=== PATIENT | male | born 1950 | race Caucasian/White ===

== ENCOUNTER 2017-11-11 10:19 | Outpatient (CLI) | payer MEDICARE ==
[~2017-11-11] VITALS: Ht 170.2 cm; Wt 88.6 kg
--- NOTE | ~2017-11-11 | HEMODYNAMI ---
PATIENT:EVA WHALEY MEDICAL RECORD: [id number] : 52 [id number] ADMISSION DATE: 11/11/17 Generatedon:11/12/201713:01 Patient name: EVA WHALEY Patient #: [id number] SSN: : 1 05/05/1949 Date of study: 11/12/2017 Page: Of Hemodynamic Procedure Report Patient Data Patient Demographics Procedure consent was obtained First Name: EVA Gender: Male Last Name: JUDD : 1950 Patient #: [id number] Age: 67 year(s) Race: Unknown Additional ID: [id number] Contact details [address]: [address] [place] [address] State: [place] City: [place] Zip code: [address] Admission Admission Data Admission Date: 11/11/2017 Admission Time: 10:19 Admit Source: Other Room #: D.2111 Lab Results Lab Result Date: 11/11/2017 Lab Result Time: 10:55 Biochemistry Name Units Result Min Max BUN mg/dl 13 --(--*-)-- 7 18 Creatinine mg/dl 0.9 --(-*--)-- 0.6 1.3 CBC Name Units Result Min Max Hematocrit % 45.9 --(-*--)-- 42 54 Hemoglobin g/dl 15.7 --(--*-)-- 13.5 17.5 Procedure Procedure Types Cath Procedure PCI Procedure Coronary Stent Coronary Stent Initial Procedure Description Procedure Date Procedure Date: 11/12/2017 Procedure Start Time: 12:49 Procedure End Time: 12:59 Procedure Staff Name Function Derrick Duncan MD Performing Physician Unique Tee RT Monitor Siva Castle RN Nurse Alan Chopra RT Scrub Procedure Data Cath Procedure Fluoroscopy Diagnostic fluoroscopy Total fluoroscopy Time: 1.5 time: 1.5 min min Diagnostic fluoroscopy Total fluoroscopy dose: 244 dose: 244 mGy mGy Contrast Material Contrast Material Type Amount (ml) Isovue 300 50 Entry Location Entry Primary Successful Side Size Upsize Upsize Entry Closure Succes sful Closure Location (Fr) 1 (Fr) 2 (Fr) Remarks Device Remarks Femoral Left 6 Fr Exoseal artery Short Estimated blood loss: 5 ml Procedure Complications No complications Procedure Medications Medication Administration Route Dosage Oxygen etCO2 Nasal cannula 2 l/min Heparin Flush Bag added to field 2 bags (1000units/500ml NS) 0.9% NaCl I.V. 100 ml/hr Fentanyl I.V. 50 mcg Versed I.V. 1 mg Versed I.V. 1 mg Fentanyl I.V. 50 mcg Heparin Bolus I.V. 4000 units Hemodynamics Rest HGB: 15.7 (g/dl) Heart Rate: 48 (bpm) Snapshots Pre Cath Intra NCS Post Cath Vital Signs Time Heart Resp SPO2 etCO2 NIBP (mmHg) Rhythm Pain Sedation Rate (ipm) (%) (mmHg) Status Level (bpm) 12:41:26 49 17 98 0 126/68(108) NSR 0 (11) 10(A) , No pain 12:46:10 47 17 100 38.3 120/67(95) NSR 0 (11) 10(A) , No pain 12:50:51 49 11 99 31.5 129/71(100) NSR 0 (11) 9(A) , No pain 12:55:31 49 11 95 39.1 126/62(100) NSR 0 (11) 9(A) , No pain Medications Time Medication Route Dose Verified Delivered Reason Notes Effectiveness by by 12:47:12 Oxygen etCO2 2 Derrick Paniagua Per physician Nasal l/min Dakota Castle RN cannula 12:47:20 Heparin Flush added 2 Derrick Paniagua used for Bag to bags Dakota Castle provisioning specialist (1000units/500ml field NS) 12:47:29 0.9% NaCl I.V. 100 Derrick Siva Per physician ml/hr Dakota Castle RN 12:47:41 Fentanyl I.V. 50 Derrick Paniagua for sedation mcg Dakota Castle RN 12:47:47 Versed I.V. 1 mg Derrick Paniagua for sedation Dakota Caslte RN 12:50:17 Versed I.V. 1 mg Derrick Paniagua for sedation Dakota Castle RN 12:50:24 Fentanyl I.V. 50 Derrick Paniagua for sedation mcg Dakota Castle RN 12:52:51 Heparin Bolus I.V. 4000 Derrick Paniagua for units Dakota Castle RN anticoagulation Procedure Log Time Note 12:24:12 Time tracking: Regular hours (M-F 7:00 - 5:00) 12:24:16 Plan of Care:Hemodynamics will remain stable., Cardiac rhythm will remain stable., Comfort level will be maintained., Respiratory function will remain adequate., Patient/ family verbilizes understanding of procedure., Procedure tolerated without complication., Recovers from procedure without complications.. 12:24:19 Siva Castle RN sent for patient. Start room use. 12:28:23 Use device set CATH PACK 12:28:25 Use device set TAUTH PCI 12:28:26 ACIST Syringe (29135) opened to sterile field. 12:28:27 ACIST Hand Control (23079) opened to sterile field. 12:28:27 ACIST Manifold (57971) opened to sterile field. 12:28:27 Medline Cath Pack ([id number]) opened to sterile field. 12:28:28 Bag Decanter (2002S) opened to sterile field. 12:28:28 DIAGNOSTIC WIRE .035 260cm J wire (656207) opened to sterile field. 12:28:29 INFLATOR Merit BasixCompak (CC7775) opened to sterile field. 12:28:33 CHOICE PT Extra Support 182cm wire ([id number]) opened to sterile field. 12:28:36 SHEATH Prelude 6Fr 0.035 (ELL-3Z-28-035) opened to sterile field. 12:35:30 Patient received from PCU to CCL 1 Alert and oriented. Tansferred to table in Supine position. 12:35:31 Warm blankets applied, and kishan hugger turned on for patient comfort. 12:35:32 Correct patient and procedure confirmed by team. 12:35:33 Signed procedure consent form obtained from patient. 12:35:34 ECG and BP/O2 sat monitors applied to patient. 12:35:35 Full Disclosure recording started 12:40:33 Vital chart was started 12:43:44 Rhythm: sinus rhythm 12:43:51 Pre-procedure instructions explained to patient. 12:43:52 Pre-op teaching completed and patient verbalized understanding. 12:43:54 Family in patients room. 12:43:55 Patient NPO since Midnight. 12:44:00 Is the patient allergic to Iodine/contrast media? No. 12:44:01 Is patient on blood thinner?Yes 12:44:04 ACC The patient was administered the following blood thiners within the last 24 hours: ACCPlavix 12:44:06 Patient diabetic? No. 12:44:24 Previous problem with sedation/anesthesia? No ? 12:44:25 Snore? Yes 12:44:26 Sleep apnea? Yes 12:44:27 Deviated septum? No 12:44:28 Opens mouth fully? Yes 12:44:28 Sticks out tongue? Yes 12:44:30 Airway obstruction? No ? 12:44:32 Dentures? No ? 12:44:39 Pre procedure: left dorsailis pedis pulse 2+ Normal; easily identifiable; not easily obliterated 12:44:42 Patient pain scale 0/10 ?. 12:44:48 IV patent on arrival in right wrist with 0.9% NaCl at [facility]. 12:44:51 Lab results completed and on chart. 12:45:01 Left groin area was prepped with chlora-prep and draped in sterile fashion 12:45:03 Alarms reviewed by R. N. 12:45:03 Sharps counted by scrub and verified by R.N. 12:45:11 GUIDE 6FR XBLAD 3.5 catheter ([id number]) opened to sterile field. 12:46:25 Final Timeout: patient, procedure, and site verified with staff and physician. All members of the team are in agreement. 12:46:27 Left groin site verified by team. 12:46:29 Physical assessment completed. ASA score P 2 - A patient with mild systemic disease as per Derrick Duncan MD. 12:46:31 Sedation plan: IV Moderate Sedation Medication:Versed, Fentanyl 12:46:45 Baseline sample Acquired. 12:47:12 Oxygen 2 l/min etCO2 Nasal cannula was administered by Siva Castle RN; Per physician; 12:47:20 Heparin Flush Bag (1000units/500ml NS) 2 bags added to field was administered by Siva Castle RN; used for procedure; 12:47:29 0.9% NaCl 100 ml/hr I.V. was administered by Siva Castle RN; Per physician; 12:47:41 Fentanyl 50 mcg I.V. was administered by Siva Castle RN; for sedation; 12:47:47 Versed 1 mg I.V. was administered by Siva Castle RN; for sedation; 12:49:52 Procedure started. 12:49:56 Local anesthetic to left femerol artery with Lidocaine 2% by Derrick Duncan MD.INITIAL ACCESS ONLY 12:50:05 A 6 Fr Short sheath was inserted into the Left Femoral artery 12:50:08 Zero performed for pressure channel P1 12:50:12 Zero performed for pressure channel P1 12:50:16 Zero performed for pressure channel P1 12:50:17 Versed 1 mg I.V. was administered by Siva Castle RN; for sedation; 12:50:24 Fentanyl 50 mcg I.V. was administered by Siva Castle RN; for sedation; 12:51:03 6 Fr XBLAD 3.5 guide catheter was inserted over the wire 12:52:51 Heparin Bolus 4000 units I.V. was administered by Siva Castle RN; for anticoagulation; 12:53:04 CHOICE PT ES wire advanced. 12:54:05 Place stent Inflation Number: 1 A FLORES RX 2.0 x 22 stent ([id number]) was prepped and advanced across the Dist LAD. The stent was deployed at 13 JAYA for 0:07 (min:sec). 12:54:19 Stent catheter was removed intact over wire. 12:54:20 Wire removed. 12:54:21 Guide catheter removed. 12:54:34 Sheath removed intact; hemostasis achieved with Exoseal to the Left Femoral artery. 12:54:43 Procedure ended.(Physican Out) 12:55:06 Fluoroscopy time 01.50 minutes. 12:55:10 Flurop Dose total: 244 12:55:10 Fluoroscopy dose: 244 mGy 12:55:15 Contrast amount:Isovue 300 50ml. 12:55:16 Sharps counted by scrub and verified by R.N. 12:55:18 Insertion/operative site no bleeding no hematoma. 12:55:25 Post-op/insertion site Left Femoral artery dressed using a 4 x 4 and Tegaderm. 12:55:30 Post left femerol artery:stable, clean and dry 12:55:31 Post Procedure Pulses reassessed and unchanged 12:55:33 Post-procedure physical assessment completed. ASA score P 2 - A patient with mild systemic disease as per Derrick Duncan MD. 12:55:49 Post procedure rhythm: unchanged. 12:55:52 Estimated blood loss: 5 ml 12:55:53 Post procedure instruction explained to patient.Patient verbalizes understanding. 12:55:53 Patient needs reinforcement of post procedure teaching. 12:56:01 Procedure Complication : No complications 12:56:21 See physician's report for complete and final results. 12:56:30 EXOSEAL 6Fr (EX600) opened to sterile field. 12:56:54 Tegaderm 4 x 4 (1626W) opened to sterile field. 12:59:10 Procedure and supply charges have been captured, reviewed, submitted and are correct. 12:59:16 Vital chart was stopped 12:59:18 Report given to PCU. 12:59:21 Patient transfered to PCU with Bed. 12:59:26 Procedure ended. 12:59:26 Full Disclosure recording stopped 12:59:29 End room use (Document Last) Intervention Summary Intervention Notes Time ActionType Lesion and Equipment Used Action# Pressure Duration Attributes 12:54:05 Place stent Dist LAD FLORES RX 2.0 x 1 13 00:07 22 stent ([id number]) Device Usage Item Name Manufacture Quantity Catalog Number Hospital Part Current Minimal Lot# / Charge Number Stock Stock Serial# Code ACIST Syringe Acist 1 55834 713372 158864 320955 20 (76580) [employer] ACIST Hand Acist 1 23762 576143 291604 649609 5 Control (37207) [employer] ACIST Manifold Acist 1 79824 574140 954567 472772 5 (67536) [employer] Systems Inc Medline Cath Cardinal 1 [id number] 003812 39180 251994 5 Next Glass Health ([id number]) Bag Decanter Microtek 1 2001S 677684 04705 320721 5 () Medical Inc. DIAGNOSTIC WIRE St Issac 1 937705 387486 654410 176738 30 .035 260cm J wire (483351) INFLATOR Merit Merit 1 GQ3493 479248 598179 307338 15 TG PublishingGarfield Memorial HospitalLiquid Air Lab (ZX8482) CHOICE PT Extra [place] 1 [id number] 094566 947717 539802 5 Support 182cm Scientific wire ([id number]) SHEATH Prelude Merit 1 FZY-6T-07-35 669570 3984201 251479 5 6Fr 0.035 Medical (YWZ-6E-34-035) GUIDE 6FR XBLAD Cardinal 1 [id number] 283926 582518 685396 10 3.5 catheter Health ([id number]) FLORES RX 2.0 x Medtronic 1 [id number] 986398 5818340 228121 5 [id number] 22 stent ([id number]) EXOSEAL 6Fr Cardinal 1 EX600 979372 633035 611998 10 (EX600) Health Tegaderm 4 x 4 3M 1 1626W 866923 567868 958113 5 (1626W) Signature Audit [place] Stage Time Signature Unsigned Intra-Procedure 11/12/2017 Unique 1:01:34 PM Counts RT(R) Signatures Monitor : Unique Signature : Counts RT Date : Time : [facility] [address] [place] [address]
--- NOTE | ~2017-11-11 | HP ---
PATIENT: EVA WHALEY MEDICAL RECORD: [id number] ACCOUNT: [id number] LOCATION:[place] : 52 ADMISSION DATE: 11/11/17 HISTORY AND PHYSICAL EXAMINATION ADMITTING DIAGNOSES: 1. Angina. 2. Hypertension. 3. Shortness of breath. 4. Abnormal ECG. HISTORY OF PRESENT ILLNESS: This is a gentleman who presents with shortness of breath and anginal symptomatology. This has been going on for quite some time. He has been attributing it to indigestion. His EKG has a partial right bundle branch block and nonspecific ST-T abnormalities. He did receive a nitro and his symptomatology improved. His symptomatology; however, has come back. PHYSICAL EXAMINATION: GENERAL APPEARANCE: Well-nourished, well-developed, appears stated age. Level of distress, comfortable. PSYCHIATRIC: Mental status, alert, normal affect. Orientation, oriented to time, place and person. EYES: Lids and conjunctiva, noninjected. No discharge, no pallor. ENT: Lips, teeth, gums, normal dentition. Oropharynx, no cyanosis, no pallor. NECK: Carotid arteries, bilateral normal upstroke, no bruits, no thrills. JUGULAR VEINS: No jugular venous pressure or distention. CERVICAL LYMPH NODES: Nontender, nonenlarged. THYROID: Not enlarged. Nontender. No nodules. LUNGS: Respiratory effort, unlabored. CHEST: Normal curvature. No thoracic deformity. No chest wall tenderness. Percussion, resonant. Auscultation, clear. No wheezes, no rales, no rhonchi. CARDIOVASCULAR: Precordial exam, nondisplaced. No heaves or pericardial thrills. Rate and rhythm, regular. Heart sounds, normal S1, normal S2. No S3, no gallop, no rub. Systolic murmur, not heard. Diastolic murmur, not heard. EXTREMITIES: No cyanosis, no edema. Peripheral pulses, full and equal in all extremities, except as noted. No bruits appreciated. ABDOMEN: Soft, nondistended. Normal aorta. No bruit. Nontender. No masses. Liver, nontender, no hepatomegaly. Spleen, nontender, no splenomegaly. MUSCULOSKELETAL: No joint tenderness. No joint swelling. No erythema. NEUROLOGICAL: Normal gait, normal strength, normal tone. SKIN: Warm and dry. REVIEW OF SYSTEMS: The patient reports easy bruising but reports no swollen glands. The patient reports no fever, no night sweats, no significant weight gain, no significant weight loss. No significant exercise tolerance. The patient reports no dry eyes, no irritation, no vision change. Patient reports no difficulty hearing and no ear pain. Patient reports no frequent nose bleeds or nose and sinus problems. Patient reports on arm pain on exertion. No shortness of breath while lying down. No history of heart murmur. Patient reports no cough, no wheezing or coughing up blood. Patient reports no abdominal pain, no vomiting. Normal appetite. No diarrhea and not vomiting blood. No nausea and no constipation. Patient reports no incontinence. No difficulty urinating. No hematuria. No increased frequency. Patient reports no muscle aches. No weakness, no arthralgias, no back pain. No swelling of the extremities. Patient reports no abnormal mole, no jaundice, no rashes. Reports HISTORY AND PHYSICAL [id number] JUDD,EVA no loss of consciousness. No weakness and no numbness. No seizures, dizziness, or headaches. The patient reports no depression, no sleep disturbance, feeling safe in a relationship and no alcohol abuse. Patient reports on fatigue. Reports no runny nose or sinus pressure. No itching, no hives, and no frequent sneezing. OVERALL IMPRESSION: Anginal symptomatology, abnormal ECG and hypertension. He has been given Lopressor and then nitro for his blood pressure. His blood pressure is in the 140 range, but he continues to have episodes of the discomfort. We will proceed with coronary angiography. Further care depends upon findings of the angiography. TRANSINT:[id number] Voice Confirmation ID: [id number] DOCUMENT ID: [id number] YURI TIAN MD at 1806 CC: [id number] DICTATION DATE: 11/11/17 120 BUDGET ANALYST: 11/11/17 1219 DEP CLI 11/12/17 [place] [id number] [place] [id number]
--- NOTE | ~2017-11-11 | OP ---
PATIENT NAME: EVA WHALEY MEDICAL RECORD: [id number] :52 LOCATION:[facility] ADMISSION DATE: SURGEON: YURI TIAN MD DATE OF OPERATION: 11/12/2017 PROCEDURES: 1. PTCA stent LAD. 2. Selective coronary angiography. INDICATION: Angina and coronary artery disease. PROCEDURE IN DETAIL: After informed consent was obtained and after a detailed description of risks, benefits as well as alternative therapies, the patient elected to proceed with angiogram and angioplasty. The left femoral area was prepped and draped in normal sterile fashion. Left femoral artery was cannulated via modified Seldinger technique with the placement of 6-Nauruan sheath. All catheters exchanged through this sheath. FINDINGS: The left anterior descending had 80% stenosis in distal vessel. This was addressed with a 2.0 x 22 mm Oxford stent. Result was 0% residual stenosis. OVERALL IMPRESSION: Successful percutaneous transluminal coronary angioplasty stent of the left anterior descending going from 80% initial stenosis to 0% residual. TRANSINT:[id number] Voice Confirmation ID: [id number] DOCUMENT ID: [id number] YURI TIAN MD at 1806 CC: [id number] DICTATION DATE: 11/12/17 1258 SHOP BLACKSMITH: 11/12/17 1320 DEP CLI 11/12/17 [place] [id number] [place] [address]
--- NOTE | ~2017-11-11 | DS ---
PATIENT:EVA WHALEY :52 MEDICAL RECORD: [id number] DISCHARGE SUMMARY ADMISSION DATE: 11/11/17 DISCHARGE DATE: 11/12/17 DATE OF SERVICE: 11/12/2017. DIAGNOSES: 1. Angina. 2. Coronary artery disease. 3. Percutaneous transluminal coronary angioplasty stent left anterior descending and circumflex this admission. HOSPITAL COURSE: Mr. Whaley presents with unstable anginal symptomatology, found to have significant disease of the LAD and circumflex, underwent successful PTCA stent of both territories, was discharged home with the addition of aspirin and Plavix to his medical regimen. Follow up with [facility] in 1 month. TRANSINT:[id number] Voice Confirmation ID: [id number] DOCUMENT ID: [id number] YURI TIAN MD at 1806 CC: [id number] DICTATION DATE: 11/12/17 1257 EMPLOYMENT EDUCATIONAL COORD: 11/12/17 1429 DEP CLI 11/12/[address] [id number]
--- NOTE | ~2017-11-11 | HEMODYNAMI ---
PATIENT:EVA WHALEY MEDICAL RECORD: [id number] : 52 [id number] ADMISSION DATE: 11/11/17 Generatedon:11/11/201717:16 Patient name: EVA WHALEY Patient #: [id number] SSN: : 1 05/05/1949 Date of study: 11/11/2017 Page: Of Hemodynamic Procedure Report Patient Data Patient Demographics Procedure consent was obtained First Name: EVA Gender: Male Last Name: JUDD : 1950 Patient #: [id number] Age: 67 year(s) Race: Unknown Additional ID: [id number] Contact details Address: [address] [place] [address] State: [place] City: [place] Zip code: [address] Admission Admission Data Admission Date: 11/11/2017 Admission Time: 10:19 Admit Source: Other Room #: D.2111 Lab Results Lab Result Date: 11/11/2017 Lab Result Time: 10:55 Biochemistry Name Units Result Min Max BUN mg/dl 13 --(--*-)-- 7 18 Creatinine mg/dl 0.9 --(-*--)-- 0.6 1.3 CBC Name Units Result Min Max Hematocrit % 45.9 --(-*--)-- 42 54 Hemoglobin g/dl 15.7 --(--*-)-- 13.5 17.5 Procedure Procedure Types Cath Procedure Diagnostic Procedure [facility] w/Coronaries PCI Procedure Coronary Stent Coronary Stent Initial Procedure Description Procedure Date Procedure Date: 11/11/2017 Procedure Start Time: 16:59 Procedure End Time: 17:14 Procedure Staff Name Function Derrick Duncan MD Performing Physician Sang Rendon RT Monitor Luca Garrett RT Scrub Siva Castle RN Nurse Unique Tee RT Monitor Procedure Data Cath Procedure Fluoroscopy Diagnostic fluoroscopy Total fluoroscopy Time: 3.6 time: 3.6 min min Diagnostic fluoroscopy Total fluoroscopy dose: 310 dose: 310 mGy mGy Contrast Material Contrast Material Type Amount (ml) Isovue 300 90 Entry Location Entry Primary Successful Side Size Upsize Upsize Entry Closure Succes sful Closure Location (Fr) 1 (Fr) 2 (Fr) Remarks Device Remarks Femoral Right 5 Fr 6 Fr Exoseal artery Short Estimated blood loss: 10 ml Diagnostic catheters Device Type Used For End Catheter Placement MULTIPACK Pigtail 5 Fr LV Angiography catheter MULTIPACK JL 4.0 5Fr Left Coronary catheter Angiography MULTIPACK 3DRC 5Fr Right Coronary catheter Angiography Procedure Complications No complications Procedure Medications Medication Administration Route Dosage Oxygen etCO2 Nasal cannula 2 l/min Heparin Flush Bag added to field 2 bags (1000units/500ml NS) 0.9% NaCl I.V. 100 ml/hr Fentanyl I.V. 50 mcg Versed I.V. 1 mg Fentanyl I.V. 50 mcg Versed I.V. 1 mg Heparin Bolus I.V. 4000 units Hemodynamics Rest HGB: 15.7 (g/dl) Heart Rate: 54 (bpm) Snapshots Pre Cath Intra NCS Post Cath Vital Signs Time Heart Resp SPO2 etCO2 NIBP (mmHg) Rhythm Pain Sedation Rate (ipm) (%) (mmHg) Status Level (bpm) 16:49:24 53 16 98 0 149/74(100) NSR 0 (11) 10(A) , No pain 16:53:48 58 16 95 33.7 125/71(103) NSR 0 (11) 10(A) , No pain 16:58:53 50 17 95 33 119/68(86) NSR 0 (11) 10(A) , No pain 17:04:03 51 17 93 24.7 115/66(84) NSR 0 (11) 9(A) , No pain 17:08:21 50 16 93 0 118/61(85) NSR 0 (11) 9(A) , No pain 17:13:28 50 16 94 0 115/64(81) NSR 0 (11) 9(A) , No pain Medications Time Medication Route Dose Verified Delivered Reason Notes Effectiveness by by 16:51:34 Oxygen etCO2 2 Derrick Paniagua Per physician Nasal l/min Dakota Castle RN cannula 16:51:42 Heparin Flush added 2 Derrick Paniagua used for Bag to bags Dakota Castle shipping & receiving lead (1000units/500ml field NS) 16:51:51 0.9% NaCl I.V. 100 Derrick Paniagua Per physician ml/hr Dakota Castle RN 16:57:02 Fentanyl I.V. 50 Derrick Paniagua for sedation mcg Dakota Castle RN 16:57:08 Versed I.V. 1 mg Derrick Paniagua for sedation Dakota Castle RN 17:00:20 Fentanyl I.V. 50 Derrick Paniagua for sedation mcg Dakota Castle RN 17:00:25 Versed I.V. 1 mg Derrick Paniagua for sedation Dakota Castle RN 17:05:57 Heparin Bolus I.V. 4000 Derrick Paniagua for units Dakota Castle RN anticoagulation Procedure Log Time Note 16:15:33 Sang Rendon RT(R) sent for patient. Start room use. 16:24:15 Informed consent obtained and on chart 16:24:18 Admit Source: Other 16:25:01 Diagnostic Cath status Elective 16:25:02 Time tracking: Regular hours (M-F 7:00 - 5:00) 16:25:06 Plan of Care:Hemodynamics will remain stable., Cardiac rhythm will remain stable., Comfort level will be maintained., Respiratory function will remain adequate., Patient/ family verbilizes understanding of procedure., Procedure tolerated without complication., Recovers from procedure without complications.. 16:25:54 H&P Date Dictated: 11/11/2017 Within 30 days and on chart.. 16:26:42 Lab Result : BUN 13 mg/dl 16:26:42 Lab Result : Creatinine 0.9 mg/dl 16:26:42 Lab Result : Hemoglobin 15.7 g/dl 16:26:42 Lab Result : Hematocrit 45.9 % 16:26:45 Lab results completed and on chart. 16:44:05 Patient received from PCU to CCL 3 Alert and oriented. Tansferred to table in Supine position. 16:44:07 Warm blankets applied, and kishan hugger turned on for patient comfort. 16:44:08 Correct patient and procedure confirmed by team. 16:44:09 ECG and BP/O2 sat monitors applied to patient. 16:48:02 Vital chart was started 16:48:03 Baseline sample Acquired. 16:51:34 Oxygen 2 l/min etCO2 Nasal cannula was administered by Siva Castle RN; Per physician; 16:51:42 Heparin Flush Bag (1000units/500ml NS) 2 bags added to field was administered by Siva Castle RN; used for procedure; 16:51:51 0.9% NaCl 100 ml/hr I.V. was administered by Siva Castle RN; Per physician; 16:54:33 Rhythm: sinus bradycardia 16:54:34 Full Disclosure recording started 16:54:37 Pre-procedure instructions explained to patient. 16:54:38 Pre-op teaching completed and patient verbalized understanding. 16:54:40 Family in patients room. 16:54:41 Patient NPO since Midnight. 16:54:54 Is the patient allergic to Iodine/contrast media? No. 16:54:55 Is patient on blood thinner?Yes 16:54:57 ACC The patient was administered the following blood thiners within the last 24 hours: ACCPlavix 16:54:58 Patient diabetic? No. 16:55:01 Previous problem with sedation/anesthesia? No ? 16:55:01 Snore? Yes 16:55:02 Sleep apnea? Yes 16:55:03 Deviated septum? No 16:55:04 Opens mouth fully? Yes 16:55:05 Sticks out tongue? Yes 16:55:07 Airway obstruction? No ? 16:55:13 Dentures? No ? 16:55:15 Pre procedure: right dorsailis pedis pulse 1+ Palpable, but thready & weak; easily obliterated 16:55:22 IV patent on arrival in right wrist with 0.9% NaCl at [facility]. 16:55:24 Patient pain scale 0/10 ?. 16:55:52 Unable to go radial due to IV in right wrist. 16:55:58 Right groin area was prepped with chlora-prep and draped in sterile fashion 16:55:59 Alarms reviewed by R. N. 16:56:00 Sharps counted by scrub and verified by R.N. 16:56:04 Use device set Femoral Dx 16:56:18 PERCUTANEOUS ENTRY 19GA needle opened to sterile field. 16:56:19 Tegaderm 4 x 4 (1626W) opened to sterile field. 16:56:20 ACIST Manifold (25910) opened to sterile field. 16:56:21 ACIST Hand Control (51673) opened to sterile field. 16:56:22 ACIST Syringe (75766) opened to sterile field. 16:56:22 Bag Decanter (2001S) opened to sterile field. 16:56:23 Medline Cath Pack ([id number]) opened to sterile field. 16:56:24 DIAGNOSTIC WIRE .035 260cm J wire (240840) opened to sterile field. 16:56:25 DIAGNOSTIC Multipack 5Fr catheter set (KF3966) opened to sterile field. 16:56:26 SHEATH Prelude 5Fr 0.035 (OQT-4N-53-035) opened to sterile field. 16:56:27 IV Extension Set opened to sterile field. 16:56:37 --------ALL STOP TIME OUT------ 16:56:37 Final Timeout: patient, procedure, and site verified with staff and physician. All members of the team are in agreement. 16:56:39 Right groin site verified by team. 16:56:42 Physical assessment completed. ASA score P 2 - A patient with mild systemic disease as per Derrick Duncan MD. 16:56:45 Sedation plan: IV Moderate Sedation Medication:Versed, Fentanyl 16:57:02 Fentanyl 50 mcg I.V. was administered by Siva Castle RN; for sedation; 16:57:08 Versed 1 mg I.V. was administered by Siva Castle RN; for sedation; 16:58:53 Unique Tee RT(R) relieved Ryne Rendon RT(R) as monitor. 16:59:22 Procedure started. 16:59:30 Local anesthetic to right femoral artery with Lidocaine 2% by Derrick Duncan MD.INITIAL ACCESS ONLY 17:00:10 A 5 Fr sheath was inserted into the Right Femoral artery 17:00:20 Fentanyl 50 mcg I.V. was administered by Siva Castle RN; for sedation; 17:00:25 Versed 1 mg I.V. was administered by Siva Castle RN; for sedation; 17:01:08 A MULTIPACK Pigtail 5 Fr catheter was advanced over the wire and used for LV Angiography. 17:01:10 LV gram done using PALMER 17:01:16 Injector settings: Ml/sec: 10, Volume: 20, 17:01:21 EF : 60 % 17:01:22 Catheter removed. 17:01:30 A MULTIPACK JL 4.0 5Fr catheter was advanced over the wire and used for Left Coronary Angiography. 17:02:13 Use device set TAU PCI 17:02:15 SHEATH Prelude 6Fr 0.035 (JRJ-6Q-64-035) opened to sterile field. 17:02:20 INFLATOR Merit BasixCompak (YC7133) opened to sterile field. 17:02:23 CHOICE PT Extra Support 182cm wire ([id number]) opened to sterile field. 17:03:09 Catheter removed. 17:03:14 A MULTIPACK 3DRC 5Fr catheter was advanced over the wire and used for Right Coronary Angiography. 17:03:21 Creola [place] IVUS Catheter (89559X) opened to sterile field. 17:03:59 Catheter removed. 17:04:10 GUIDE 6FR AR 2.0 SH catheter ([id number]) opened to sterile field. 17:05:15 Sheath upsized to a 6 Fr Short. 17:05:30 6 Fr AR 2.0 SH guide catheter was inserted over the wire 17:05:57 Heparin Bolus 4000 units I.V. was administered by Siva Castle RN; for anticoagulation; 17:06:53 CHOICE PT ES wire advanced. 17:09:32 Place stent Inflation Number: 1 A FLORES RX 2.5 x 12 stent ([id number]) was prepped and advanced across the Prox CX. The stent was deployed at 13 JAYA for 0:10 (min:sec). 17:09:46 Inflation number: 2 The stent balloon was then re-inflated across the Prox CX to 17 JAYA for 0:09 (min:sec). 17:10:05 Stent catheter was removed intact over wire. 17:10:05 Wire removed. 17:10:05 Guide catheter removed. 17:10:12 Sheath removed intact; hemostasis achieved with Exoseal to the Right Femoral artery. 17:10:17 EXOSEAL 6Fr (EX600) opened to sterile field. 17:10:20 Procedure ended.(Physican Out) 17:10:31 Fluoroscopy time 03.60 minutes. 17:10:38 Fluoroscopy dose: 310 mGy 17:10:38 Flurop Dose total: 310 17:10:47 Contrast amount:Isovue 300 90ml. 17:10:49 Sharps counted by scrub and verified by R.N. 17:10:50 Insertion/operative site no bleeding no hematoma. 17:10:53 Post-op/insertion site Right Femoral artery dressed using a 4 x 4 and Tegaderm. 17:10:57 Post right femoral artery:stable, clean and dry 17:12:46 Post Procedure Pulses reassessed and unchanged 17:12:48 Post-procedure physical assessment completed. ASA score P 2 - A patient with mild systemic disease as per Derrick Duncan MD. 17:12:50 Post procedure rhythm: unchanged. 17:12:54 Estimated blood loss: 10 ml 17:12:56 Post procedure instruction explained to patient.Patient verbalizes understanding. 17:12:56 Patient needs reinforcement of post procedure teaching. 17:13:36 Procedure type changed to Cath procedure, Diagnostic procedure, LHC, LHC w/Coronaries, PCI procedure, Coronary Stent, Coronary Stent Initial 17:13:40 Procedure Complication : No complications 17:13:42 See physician's report for complete and final results. 17:14:25 Procedure and supply charges have been captured, reviewed, submitted and are correct. 17:14:32 Vital chart was stopped 17:14:35 Report given to PCU. 17:14:38 Patient transfered to PCU with Bed. 17:14:45 Procedure ended. 17:14:45 Full Disclosure recording stopped 17:14:48 End room use (Document Last) Intervention Summary Intervention Notes Time ActionType Lesion and Equipment Used Action# Pressure Duration Attributes 17:09:32 Place stent Prox CX FLORES RX 2.5 x 1 13 00:10 12 stent ([id number]) 17:09:46 Reinflate Prox CX FLORES RX 2.5 x 2 17 00:09 stent 12 stent balloon ([id number]) Device Usage Item Name Manufacture Quantity Catalog Number Hospital Part Current Minimal Lot# / Charge Number Stock Stock Serial# Code PERCUTANEOUS [employer] [employer] 1 [id number] 099373 5 ENTRY 19GA needle Tegaderm 4 x 4 3M 1 1626W 535501 388444 229260 5 (1626W) ACIST Manifold Acist 1 51677 568031 808346 511718 5 (12609) Medical Systems Inc ACIST Hand Acist 1 94373 434864 476000 266646 5 Control (02015) Medical Systems Inc ACIST Syringe Acist 1 11021 736407 823816 703605 20 (82472) Medical Systems Inc Bag Decanter Microtek 1 2001S 382644 85401 770741 5 () Medical Inc. Medline Cath Cardinal 1 [id number] 621544 38584 076900 5 Pack Health ([id number]) DIAGNOSTIC WIRE [facility] [place] 1 818601 946875 506323 438826 30 .035 260cm J wire (184079) DIAGNOSTIC Cardinal 1 DI2424 621480 81038 318712 30 Multipack 5Fr Health catheter set (QV7597) SHEATH Prelude Merit 1 JSK-4K-06-035 653696 094562 503666 5 5Fr 0.035 Medical (MUP-0J-71-035) IV Extension Hospira 1 047988 85947 879833 5 Set MULTIPACK JL Cardinal 2 684439 5 4.0 5Fr Health catheter MULTIPACK Cardinal 2 899959 5 Pigtail 5 Fr Health catheter SHEATH Prelude Merit 1 UDD-4H-67-35 352121 9272156 353092 5 6Fr 0.035 Medical (DYK-7U-03-035) INFLATOR Merit Merit 1 KG6584 289064 169053 494580 15 SalonBookrakJuristat (JX1288) CHOICE PT Extra [place] 1 [id number] 910705 578793 409185 5 Support 182cm Scientific wire ([id number]) MULTIPACK 3DRC Cardinal 1 343698 5 5Fr catheter Health Creola Creola 1 93038H 379760 266834 075749 8 [place] IVUS Catheter (61958Y) GUIDE 6FR AR Medtronic 1 [id number] 179042 36603 041167 1 2.0 SH catheter ([id number]) FLORES RX 2.5 x Medtronic 1 [id number] 122979 8904744 326480 5 [id number] 12 stent ([id number]) EXOSEAL 6Fr Cardinal 1 EX600 090113 121488 254259 10 (EX600) Health Signature Audit [place] Stage Time Signature Unsigned Intra-Procedure 11/11/2017 Unique 5:16:12 PM Counts RT(R) Signatures Monitor : Sang Rendon RT Signature : Date : Time : Monitor : Unique Signature : Counts RT Date : Time : [address] [place] [address]
--- NOTE | ~2017-11-11 | OP ---
PATIENT NAME: EVA WHALEY MEDICAL RECORD: [id number] :52 LOCATION:D.OPS ADMISSION DATE: SURGEON: YURI TIAN MD DATE OF OPERATION: 11/11/2017 PROCEDURES: 1. PTCA and stent, anomalous circumflex. 2. Left heart catheterization. 3. Selective coronary angiography. 4. Left ventriculogram. INDICATION: Angina and coronary disease. PROCEDURE IN DETAIL: After informed consent was obtained and after detailed explanation of risks and benefits as well as alternative therapies, the patient elected to proceed with angiogram and angioplasty. The right femoral area was prepped and draped in normal sterile fashion. Right femoral artery was cannulated via modified Seldinger technique with placement of 6-Japanese sheath. All catheters were exchanged through this sheath. FINDINGS: The left ventriculogram was performed in standard 30-degree PALMER view, reveals good cardiac wall motion throughout all segments. Overall ejection fraction estimated to 60%. SELECTIVE CORONARY ANGIOGRAPHY: 1. Left main is with no significant angiographic disease. 2. Left anterior descending has 85% stenosis in the mid distal vessel. 3. 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 In the proximal vessel, there is 90% stenosis. 4. Right coronary artery has mild irregularities, but no flow-limiting stenosis. PTCA AND STENT OF THE ANOMALOUS CIRCUMFLEX: The stent used was 2.5 x 12 mm [place]. Result was 0% residual stenosis. OVERALL IMPRESSION: Successful PTCA and stent of the left circumflex coming off the RCA, going from 85% to 90% initial stenosis to 0% residual. PLAN: PTCA and stent of the LAD in the near future. TRANSINT:[id number] Voice Confirmation ID: [id number] DOCUMENT ID: [id number] YURI TIAN MD at 1806 CC: [id number] DICTATION DATE: 11/11/178 WELDING PANTOGRAPH MACHINE OPERATOR: 11/11/17 1748 [facility] CLI 11/12/[address] [address]
[2017-11-11 11:08] LABS: BASOPHILS 0.6 % (0-2); EOSINOPHILS 4.9 % (0-7); HEMATOCRIT 45.9 % (42.0-54.0); HEMOGLOBIN 15.7 g/dL (13.5-17.5); IMMATURE GRANULOCYTES 0.3 % (0-5); MCH 31.2 pg (26.0-34.0); MCHC 34.2 g/dL (31.0-37.0); MCV 91.3 fL (80.0-100.0); MEAN PLATELET VOLUME 10.5 fL (7.4-10.4); MONOCYTES 8.6 % (2-11); NEUTROPHILS 59.6 % (40-80); PLATELET COUNT 276 10x3/uL (130-400); RBC 5.03 10x6/uL (4.20-6.10); RDW 14.1 % (11.5-14.5); WBC 9.8 10x3/uL (4.8-10.8)
[2017-11-11 11:21] LABS: ALBUMIN 3.4 g/dL (3.4-5.0); ALKALINE PHOSPHATASE 113 U/L (46-116); ALT (SGPT) 115 U/L (10-68); CALC OSMOLALITY 277 mosm/kg (275-300); CALCIUM 8.5 mg/dL (8.5-10.1); CARBON DIOXIDE 27.3 mmol/L (21.0-32.0); CHLORIDE - SERUM 105 mmol/L (98-107); CREATININE - SERUM 0.9 mg/dL (0.6-1.3); GLUCOSE 102 mg/dL (74-106); POTASSIUM - SERUM 4.1 mmol/L (3.5-5.1); PROTEIN - SERUM 7.6 g/dL (6.4-8.2); SODIUM 139 mmol/L (136-145); UREA NITROGEN 13 mg/dL (7-18); eGFR NON AFRICAN AMERICAN 90 mL/min (90-120)
[2017-11-11 11:25] LABS: CREATINE KINASE 46 UL (21-232)
[2017-11-11 11:26] LABS: TROPONIN-I < 0.017 ng/mL (0.000-0.060)
[2017-11-11 15:53] VITALS: BP 158/71
[2017-11-11 16:33] VITALS: BP 158/71; Ht 170.2 cm; Wt 88.6 kg
[2017-11-11 21:28] VITALS: BP 111/65
[2017-11-12 05:29] VITALS: BP 95/58
[2017-11-12 13:06] VITALS: BP 106/57
[2017-11-12] MEDS ORDERED: PLAVIX75 MG PO (13:40)
== END 2017-11-12 17:56 | disposition home or self-care (01) ==
LOC: D.OPS 10:19 → D.M2 10:19 → D.ER 10:19 → EDSTATUS 12:30 → D.M2 12:51 → D.OPS 11-12 17:56
PROVIDERS: Emergency Medicine
DX: I25.110 Atherosclerotic heart disease of native coronary artery with unstable angina pectoris (principal); Q24.8 Other specified congenital malformations of heart; I10 Essential (primary) hypertension; R94.31 Abnormal electrocardiogram [ECG] [EKG]; Z01.812 Encounter for preprocedural laboratory examination
CPT/HCPCS: 93458; C9600 ×2

== ENCOUNTER 2017-11-30 09:48 | Emergency (ER) | payer MEDICARE ==
[~2017-11-30] VITALS: Ht 170.2 cm; Wt 88.6 kg
[~2017-11-30 09:48] MED LIST: PLAVIX75 MG PO
[2017-11-30 09:53] VITALS: Ht 170.2 cm; Wt 88.6 kg
[2017-11-30 10:04] LABS: BASOPHILS 0.7 % (0-2); EOSINOPHILS 6.4 % (0-7); HEMATOCRIT 42.5 % (42.0-54.0); HEMOGLOBIN 14.6 g/dL (13.5-17.5); IMMATURE GRANULOCYTES 0.4 % (0-5); LYMPHOCYTES 33.4 % (15-50); MCH 31.3 pg (26.0-34.0); MCHC 34.4 g/dL (31.0-37.0); MEAN PLATELET VOLUME 10.7 fL (7.4-10.4); MONOCYTES 7.8 % (2-11); NEUTROPHILS 51.3 % (40-80); PLATELET COUNT 323 10x3/uL (130-400); RBC 4.67 10x6/uL (4.20-6.10); RDW 13.6 % (11.5-14.5); WBC 8.4 10x3/uL (4.8-10.8)
[2017-11-30 10:30] LABS: ALBUMIN 3.6 g/dL (3.4-5.0); ALKALINE PHOSPHATASE 106 U/L (46-116); BILIRUBIN - TOTAL 0.51 mg/dL (0.2-1.3); CALC OSMOLALITY 278 mosm/kg (275-300); CALCIUM 8.7 mg/dL (8.5-10.1); CARBON DIOXIDE 24.8 mmol/L (21.0-32.0); CHLORIDE - SERUM 104 mmol/L (98-107); CKMB 0.7 U/L (0.0-3.6); CREATINE KINASE 62 UL (21-232); GLUCOSE 118 mg/dL (74-106); POTASSIUM - SERUM 4.2 mmol/L (3.5-5.1); PRO BNP 120 pg/mL (0-125); PROTEIN - SERUM 7.8 g/dL (6.4-8.2); SODIUM 139 mmol/L (136-145); UREA NITROGEN 13 mg/dL (7-18); eGFR NON AFRICAN AMERICAN 79 mL/min (90-120)
[2017-11-30 10:34] LABS: TROPONIN-I < 0.017 ng/mL (0.000-0.060)
[2017-11-30 11:22] LABS: ALT (SGPT) 57 U/L (10-68)
[2017-11-30] MEDS ORDERED: ZANTAC300 MG PO (11:31)
[2017-11-30 12:18] VITALS: BP 151/85
== END 2017-11-30 12:19 | disposition home or self-care (01) ==
LOC: D.ER 09:48
PROVIDERS: Family Medicine
DX: R07.9 Chest pain, unspecified (principal); I10 Essential (primary) hypertension; K21.9 Gastro-esophageal reflux disease without esophagitis; I45.10 Unspecified right bundle-branch block; R00.1 Bradycardia, unspecified

== ENCOUNTER 2018-04-11 11:39 | Inpatient (IN) | payer MEDICARE ==
[~2018-04-11] VITALS: Ht 170.2 cm; Wt 93.2 kg
--- NOTE | ~2018-04-11 | HEMODYNAMI ---
PATIENT:SANDRA WHALEY MEDICAL RECORD: [id number] : 52 LOCATION[id number] ADMISSION DATE: 04/11/18 Generatedon:04/11/201815:02 Patient name: SANDRA WHALEY Patient #: [id number] SSN: : 1950 Date of study: 04/11/2018 Page: Of Hemodynamic Procedure Report Patient Data Patient Demographics Procedure consent was obtained First Name: SANDRA Gender: Male Last Name: JUDD : 1950 Middle Initial: R Age: 68 year(s) Patient #: [id number] Race: Unknown Additional ID: [id number] Contact details [address]: [address] [place] [address] State: [place] City: [place] Zip code: [address] Admission Admission Data Admission Date: 04/11/2018 Admission Time: 11:39 Room #: D.2119 Procedure Procedure Types Cath Procedure Diagnostic Procedure LHC LHC w/Coronaries Peripheral Cath Diagnostic Procedure Abd/Extremity Renal Bilat Renal Arteriogram Procedure Description Procedure Date Procedure Date: 04/11/2018 Procedure Start Time: 14:49 Procedure End Time: 15:00 Procedure Staff Name Function Derrick Duncan MD Performing Physician Aubrey Johnson RN Java Software Developer Rhiannon Pandey RT Scrub Lesli Lester RT Monitor Procedure Data Cath Procedure Fluoroscopy Diagnostic fluoroscopy Total fluoroscopy Time: 1.4 time: 1.4 min min Diagnostic fluoroscopy Total fluoroscopy dose: 575 dose: 575 mGy mGy Contrast Material Contrast Material Type Amount (ml) Isovue 300 68 Entry Location Entry Primary Successful Side Size Upsize Upsize Entry Closure Succes sful Closure Location (Fr) 1 (Fr) 2 (Fr) Remarks Device Remarks Femoral Right 5 Fr Exoseal artery Estimated blood loss: 10 ml Diagnostic catheters Device Type Used For End Catheter Placement MULTIPACK Pigtail 5 Fr Procedure catheter MULTIPACK JL 4.0 5Fr Procedure catheter MULTIPACK 3DRC 5Fr Procedure catheter Procedure Complications No complications Procedure Medications Medication Administration Route Dosage Oxygen etCO2 Nasal cannula 2 l/min Lidocaine 2% added to field 20 Heparin Flush Bag added to field 2 bags (1000units/500ml NS) 0.9% NaCl I.V. 100 ml/hr Versed I.V. 1 mg Fentanyl I.V. 50 mcg Versed I.V. 1 mg Fentanyl I.V. 50 mcg Plavix P.O. 75 mg Benadryl I.V. 50 mg Hemodynamics Rest Heart Rate: 50 (bpm) Pressure Samples Time Site Value (mmHg) Purpose Heart Use Rate(bpm) 14:50 AO 109/8(51) Snapshot 38 Snapshots Pre Cath Intra NCS Post Cath Vital Signs Time Heart Resp SPO2 etCO2 NIBP (mmHg) Rhythm Pain Sedation Rate (ipm) (%) (mmHg) Status Level (bpm) 14:46:24 50 20 99 44.7 153/80(127) NSR 0 (11) 10(A) , No pain 14:51:40 46 13 98 33.3 136/69(97) NSR 0 (11) 9(A) , No pain 14:55:58 46 12 99 37.1 141/69(113) NSR 0 (11) 9(A) , No pain 15:00:18 47 14 98 32.5 130/67(108) NSR 0 (11) 10(A) , No pain Medications Time Medication Route Dose Verified Delivered Reason Notes E ffectiveness by by 14:40:19 Plavix P.O. 75 mg Derrick Sandhuie for Dakota Johnson RN antiplatelet therapy 14:42:17 Benadryl I.V. 50 mg Derrick Burgos used for Dakota Johnson RN procedure 14:43:56 Oxygen etCO2 2 Derrick Buffie used for Nasal l/min Dakota Johnson RN procedure cannula 14:44:36 Lidocaine 2% added 20ml Derrick Meza for local to vial Dakota Duncan MD anesthetic field 14:44:42 Heparin Flush added 2 Derrick Meza used for Bag to bags Dakota Duncan MD procedure (1000units/500ml field NS) 14:44:59 0.9% NaCl I.V. 100 Derricksina Sandhuie used for ml/hr Dakota Johnson RN procedure 14:48:59 Versed I.V. 1 mg Derrick Burgos for sedation Dakota Johnson RN 14:49:04 Fentanyl I.V. 50 Derrick Buffie for sedation mcg Dakota Johnson RN 14:50:19 Versed I.V. 1 mg Derrick Burgos for sedation Dakota Johnson RN 14:50:22 Fentanyl I.V. 50 Derrick Burgos for sedation mcg Dakota Johnson RN Procedure Log Time Note 14:35:23 Aubrey Johnson RN sent for patient. Start room use. 14:40:19 Plavix 75 mg P.O. was administered by Aubrey Johnson RN; for antiplatelet therapy; 14:42:17 Benadryl 50 mg I.V. was administered by Aubrey Johnson RN; used for procedure; 14:43:56 Oxygen 2 l/min etCO2 Nasal cannula was administered by Aubrey Johnson RN; used for procedure; 14:44:23 Vital chart was started 14:44:36 Lidocaine 2% 20ml vial added to field was administered by Derrick Duncan MD; for local anesthetic; 14:44:42 Heparin Flush Bag (1000units/500ml NS) 2 bags added to field was administered by Derrick Duncan MD; used for procedure; 14:44:59 0.9% NaCl 100 ml/hr I.V. was administered by Aubrey Johnson RN; used for procedure; 14:47:19 Diagnostic Cath status Elective 14:47:25 Time tracking: Regular hours (M-F 7:00 - 5:00) 14:47:30 Plan of Care:Hemodynamics will remain stable., Cardiac rhythm will remain stable., Comfort level will be maintained., Respiratory function will remain adequate., Patient/ family verbilizes understanding of procedure., Procedure tolerated without complication., Recovers from procedure without complications.. 14:47:39 Patient received from Med II to CCL 2 Alert and oriented. Tansferred to table in Supine position. 14:47:40 Warm blankets applied, and kishan hugger turned on for patient comfort. 14:47:40 Correct patient and procedure confirmed by team. 14:47:42 Signed procedure consent form obtained from patient. 14:47:43 ECG and BP/O2 sat monitors applied to patient. 14:47:44 Baseline sample Acquired. 14:47:47 Rhythm: unchanged. 14:47:49 Full Disclosure recording started 14:47:55 H&P Date Dictated: 04/11/2018 Within 30 days and on chart.. 14:47:57 Family in waiting room. 14:47:59 Patient NPO since Midnight. 14:48:06 Is patient on blood thinner?Yes 14:48:08 Patient diabetic? No. 14:48:12 Snore? Yes 14:48:13 Sleep apnea? No 14:48:18 Dentures? No ? 14:48:27 IV patent on arrival in right hand with 0.9% NaCl at [facility]. 14:48:30 Lab results completed and on chart. 14:48:33 Right groin area was prepped with chlora-prep and draped in sterile fashion 14:48:35 Alarms reviewed by R. N. 14:48:35 Sharps counted by scrub and verified by R.N. 14:48:36 Physician paged 14:48:37 Physician arrived 14:48:37 --------ALL STOP TIME OUT------ 14:48:38 Final Timeout: patient, procedure, and site verified with staff and physician. All members of the team are in agreement. 14:48:40 Right groin site verified by team. 14:48:44 Physical assessment completed. ASA score P 2 - A patient with mild systemic disease as per Derrick Duncan MD. 14:48:49 Sedation plan: IV Moderate Sedation Medication:Versed, Fentanyl 14:48:53 Use device set Femoral Dx 14:48:55 ACIST Syringe (67055) opened to sterile field. 14:48:55 Bag Decanter (2002S) opened to sterile field. 14:48:56 Medline Cath Pack ([id number]) opened to sterile field. 14:48:56 DIAGNOSTIC WIRE .035 260cm J wire (513365) opened to sterile field. 14:48:57 ACIST Hand Control (42899) opened to sterile field. 14:48:58 ACIST Manifold (22317) opened to sterile field. 14:48:58 DIAGNOSTIC Multipack 5Fr catheter set ([id number]) opened to sterile field. 14:48:59 Versed 1 mg I.V. was administered by Aubrey Johnson RN; for sedation; 14:49:01 SHEATH 5FR Winside ([id number]) opened to sterile field. 14:49:03 Procedure started. 14:49:04 Fentanyl 50 mcg I.V. was administered by Buffie Johnson RN; for sedation; 14:49:08 Local anesthetic to right femoral artery with Lidocaine 2% by Derrick Duncan MD.INITIAL ACCESS ONLY 14:49:40 A 5 Fr sheath was inserted into the Right Femoral artery 14:49:48 Zero performed for pressure channel P1 14:50:00 A MULTIPACK Pigtail 5 Fr catheter was advanced over the wire and used for Procedure. 14:50:03 Zero performed for pressure channel P1 14:50:11 Zero performed for pressure channel P1 14:50:17 Zero performed for pressure channel P1 14:50:19 Versed 1 mg I.V. was administered by Aubrey Johnson RN; for sedation; 14:50:22 Fentanyl 50 mcg I.V. was administered by Aubrey Johnson RN; for sedation; 14:50:40 EF : 60 % 14:50:42 Catheter removed. 14:51:13 A MULTIPACK JL 4.0 5Fr catheter was advanced over the wire and used for Procedure. 14:51:23 LCA angiography performed. 14:51:51 Catheter removed. 14:52:29 A MULTIPACK 3DRC 5Fr catheter was advanced over the wire and used for Procedure. 14:52:52 RCA angiography performed. 14:53:40 Right renal angiography performed. 14:53:41 Left renal angiography performed. 14:54:03 Sheath removed intact; hemostasis achieved with Exoseal to the Right Femoral artery. 14:54:08 Procedure ended.(Physican Out) 14:54:30 Fluoroscopy time 01.40 minutes. 14:55:01 Fluoroscopy dose: 575 mGy 14:55:01 Flurop Dose total: 575 14:55:05 Contrast amount:Isovue 300 68ml. 14:55:08 Insertion/operative site no bleeding no hematoma. 14:55:10 Post Procedure Pulses reassessed and unchanged 14:55:15 Post procedure rhythm: unchanged. 14:55:24 Estimated blood loss: 10 ml 14:55:30 Post procedure instruction explained to patient.Patient verbalizes understanding. 14:56:27 Procedure type changed to Cath procedure, Diagnostic procedure, LHC, LHC w/Coronaries, Peripheral Cath Diagnostic Procedure, Abd/Extremity, Renal, Bilat Renal Arteriogram 14:56:42 Procedure and supply charges have been captured, reviewed, submitted and are correct. 14:59:55 Procedure Complication : No complications 14:59:59 Vital chart was stopped 15:00:04 Procedure ended. 15:00:04 Full Disclosure recording stopped 15:00:11 End room use (Document Last) Device Usage Item Name Manufacture Quantity Catalog Hospital Part Current Minimal L ot# / Number Charge Number Stock Stock Serial# Code ACIST Acist 1 51201 138779 365179 701890 20 Syringe Medical (72938) Systems Inc Bag Microtek 1 2001S 251873 61977 295588 5 Decanter Medical Inc. () Medline Medline 1 [id number] 241038 98621 829531 5 Cath Pack ([id number]) DIAGNOSTIC St Issac 1 675335 218169 389636 146949 30 WIRE .035 260cm J wire (010947) ACIST Hand Acist 1 07946 190658 436372 218388 5 Control Medical (67302) Systems Inc ACIST Acist 1 72512 759716 657455 994919 5 Manifold Medical (51541) Systems Inc DIAGNOSTIC Cardinal 1 MQ2455 446474 13153 845261 30 Multipack Health 5Fr catheter set (UF1455) SHEATH 5FR Terumo 1 FZE942 713672 039955 903728 5 Winside (IFN864) MULTIPACK Cardinal 1 016092 5 Pigtail 5 Health Fr catheter MULTIPACK Cardinal 1 433726 5 JL 4.0 5Fr Health catheter MULTIPACK Cardinal 1 499776 5 3DRC 5Fr Health catheter Signature Audit [place] Stage Time Signature Unsigned Intra-Procedure 04/11/2018 Lesli Lester 3:02:18 PM RT(R) Signatures Monitor : Lesli Lester Signature : RT Date : Time : [facility] [address] [place] [address]
[~2018-04-11 11:39] MED LIST changes: +ZANTAC300 MG PO
[2018-04-11] MEDS ORDERED: LEXAPRO10 MG PO (12:20)
[2018-04-11] MEDS ORDERED: ZESTRIL40 MG PO (12:21)
[2018-04-11] MEDS ORDERED: TOPROL XL25 MG PO ×2 (12:21→16:45)
[2018-04-11 12:49] VITALS: BP 170/78; BMI 32.2
--- NOTE | 2018-04-11 12:56 | NUR ---
RECEIVED PT FROM ADMISSIONS. PT IS AAO AND UP AD KRISTIAN. RR EVEN AND UNLABORED ON RA. TELEMETRY APPLIED AND PT IS 59 SB. INITIATED NEW PIV TO THE RIGHT FOREARM 20GA X1 ATTEMPT. FLUSHED WITH 10CC NS TO CONFIRM PATENCY. PT TOLERATED WELL. PT DENIES ANY NEEDS AT THIS TIME. PT CHANGED INTO GOWN. NONSPLIP SOCKS PUT ON. PT CURRENTLY LYING SEMI FOWLERS. CALL LIGHT W/I REACH. WILL CTM.
[2018-04-11 13:05] LABS: BASOPHILS 0.7 % (0-2); EOSINOPHILS 5.6 % (0-7); HEMATOCRIT 42.7 % (42.0-54.0); IMMATURE GRANULOCYTES 0.4 % (0-5); LYMPHOCYTES 39.3 % (15-50); MCH 30.3 pg (26.0-34.0); MCHC 32.8 g/dL (31.0-37.0); MCV 92.4 fL (80.0-100.0); MEAN PLATELET VOLUME 9.6 fL (7.4-10.4); MONOCYTES 13.6 % (2-11); NEUTROPHILS 40.4 % (40-80); PLATELET COUNT 325 10x3/uL (130-400); RBC 4.62 10x6/uL (4.20-6.10); RDW 13.2 % (11.5-14.5); WBC 8.6 10x3/uL (4.8-10.8)
[2018-04-11 13:13] LABS: APTT 31.1 SECONDS (22.8-39.4); INR 1.03 (0.85-1.17)
[2018-04-11 13:33] LABS: ALBUMIN 3.3 g/dL (3.4-5.0); ALKALINE PHOSPHATASE 65 U/L (46-116); ALT (SGPT) 32 U/L (10-68); BILIRUBIN - TOTAL 0.15 mg/dL (0.2-1.3); CALC OSMOLALITY 278 mosm/kg (275-300); CALCIUM 8.7 mg/dL (8.5-10.1); CARBON DIOXIDE 26.7 mmol/L (21.0-32.0); CHLORIDE - SERUM 103 mmol/L (98-107); CREATININE - SERUM 0.9 mg/dL (0.6-1.3); GLUCOSE 103 mg/dL (74-106); POTASSIUM - SERUM 4.2 mmol/L (3.5-5.1); PROTEIN - SERUM 6.9 g/dL (6.4-8.2); SODIUM 139 mmol/L (136-145); UREA NITROGEN 16 mg/dL (7-18); eGFR NON AFRICAN AMERICAN 89 mL/min (90-120)
[2018-04-11 13:44] LABS: CKMB 1.1 U/L (0.0-3.6); CREATINE KINASE 90 UL (21-232); TROPONIN-I < 0.017 ng/mL (0.000-0.060)
[2018-04-11 14:07] VITALS: Ht 170.2 cm; Wt 93.2 kg
--- NOTE | 2018-04-11 14:30 | NUR ---
PT TAKEN TO C D REACTOR OPERATOR
--- NOTE | 2018-04-11 15:17 | NUR ---
PT RETURNED FROM AUTOMOTIVE PARTS COUNTER ASSOCIATE. R.FEM SITE IS C/D/I. PT IS AAO AND RESTING AT THE MOMENT. NS INFUSING @100ML/HR VIA R.FOR PIV. PT DENIES ANY NEEDS. PERIPHERAL PULSES EVEN AND BILATERAL.
--- NOTE | 2018-04-11 16:33 | NUR ---
RECEIVED VERBAL ORDERS FROM AIDAN LOWE THAT CARDIOLOGY WAS SIGNING OFF AND MAKE NO CHANGES TO MEDICATION REGIMENT. WILL NOTIFY MYNOR VIVAR.
[2018-04-11] MEDS ORDERED: LIPITOR10 MG PO (16:45)
[2018-04-11] MEDS ORDERED: NORVASC10 MG PO (16:45)
--- NOTE | 2018-04-11 17:15 | MORECARE ---
CASE MANAGEMENT DISCHARGE SUMMARY PATIENT: SANDRA WHALEY UNIT: [id number] ADM DATE: 04/11/18 AGE: 68 : 51 SEX: M ROOM/BED: D.2119 AUTHOR: MARIANNE CARTER PHYSICIAN: REFERRING PHYSICIAN: HARIS SIMEON MD DATE OF SERVICE: 04/11/18 Discharge Plan Patient Name: SANDRA WHALEY Facility: [facility]:[place] : 1950 Planned Disposition: Home Anticipated Discharge Date: 04/11/18 Discharge Date: Expected LOS: 1 Initial Reviewer: [email or web address] Initial Review Date: 04/11/2018 Generated: 04/11/18 6:15 pm Patient Name: SANDRA WHALEY Page [phone] at 2752 All edits/amendments must be made on the electronic document DICTATION DATE: 04/11/181714 NURSING SECRETARY: ELOY 04/11/181714 RPT#: [id number] DC DATE: STATUS: ADM IN [facility] [address] [place] [address] END OF REPORT
--- NOTE | 2018-04-11 18:31 | NUR ---
PT STATED THAT HE DID NOT HAVE A RIDE HOME. CALLED MINE SURVEYOR AND RECEIVED A TAXI VOUCHER. PT SIGNED PROPER DISCHARGE PAPERWORK AND REMOVED ALL VALUABLES FROM THE ROOM. PIV REMOVED WITH CATHETER TIP FULLY INTACT. TELEMETRY REMOVED AND RETURNED. DISCHARGED PT VIA WHEELCHAIR WITH TAXI.
--- NOTE | 2018-04-11 18:34 | MORECARE ---
CASE MANAGEMENT DISCHARGE SUMMARY PATIENT: SANDRA WHALEY UNIT: [id number] ADM DATE: 04/11/18 AGE: 68 : 51 SEX: M ROOM/BED: D.2119 AUTHOR: MARIANNE CARTER PHYSICIAN: REFERRING PHYSICIAN: HARIS SIMEON MD DATE OF SERVICE: 04/11/18 Discharge Plan Patient Name: SANDRA WHALEY Facility: [facility]:[place] : 1950 Planned Disposition: Home Anticipated Discharge Date: 04/11/18 Discharge Date: 04/11/2018 Expected LOS: 1 Initial Reviewer: [email or web address] Initial Review Date: 04/11/2018 Generated: 04/11/18 7:34 pm Last DP export: 04/11/18 4:15 p Patient Name: SANDRA WHALEY Page [phone] at 1834 All edits/amendments must be made on the electronic document DICTATION DATE: 04/11/181832 RADIO NEWS ANCHOR: ELOY 04/11/181832 RPT#: [id number] DC DATE:04/11/18 STATUS: DIS IN [facility] [address] [facility] [place] [address] END OF REPORT
--- NOTE | 2018-04-18 12:11 | OP ---
PATIENT NAME: SANDRA WHALEY MEDICAL RECORD: [id number] :52 LOCATION:D.M2 D.2119 ADMISSION DATE:04/11/18 SURGEON: YURI TIAN MD DATE OF OPERATION: 04/11/2018 PROCEDURES: 1. Left heart catheterization. 2. Selective coronary angiography. 3. Left ventriculogram. 4. Bilateral selective renal angiography. INDICATION: Uncontrolled hypertension, angina, coronary artery disease, previous percutaneous transluminal coronary angioplasty stent. DESCRIPTION OF PROCEDURE: After informed consent was obtained and after detailed description of risks, benefits as well as alternative therapies, the patient elected to proceed with angiogram and heart catheterization. The right femoral area was prepped and draped in normal sterile fashion. Right femoral artery cannulated via modified Seldinger technique with placement of 6-Indonesian sheath. All catheters exchanged through this sheath. FINDINGS: Left ventriculogram was performed in standard 30-degree PALMER view, reveals good cardiac wall motion throughout all segments. Overall ejection fraction estimated at 60%. SELECTIVE CORONARY ANGIOGRAPHY: 1. Left main is with no significant angiographic disease. 2. Left anterior descending has a previously placed stent that is widely patent with no significant restenosis. No disease elsewise throughout the LAD or its branches. 3. Left circumflex has previously placed stent. It has no significant restenosis. No disease elsewise throughout the circumflex or its branches. 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 4. The right coronary has moderate irregularities, but no flow-limiting stenosis. OVERALL IMPRESSION: Wide patency of the previously placed stents with no significant restenosis. No disease elsewise. Continue medical management of the coronary artery disease and cardiac risk factors. TRANSINT:[id number] Voice Confirmation ID: [id number] DOCUMENT ID: [id number] YURI TIAN MD at 1211 CC: [id number] DICTATION DATE: 04/11/18 1501 TEACHER EMOTIONALLY IMPAIRED: 04/11/18 1950 DIS IN 04/11/18 [facility] [address] [place] [address]
== END 2018-04-11 18:33 | disposition home or self-care (01) | DRG 287 ==
LOC: D.M2 11:39
PROVIDERS: Internal Medicine Interventional Cardiology; ADMIT Family Medicine
PROC: 4A023N7 Measurement of Cardiac Sampling and Pressure, Left Heart, Percutaneous Approach (ICD-10-PCS; 2018-04-11)
PROC: B4181ZZ Fluoroscopy of Bilateral Renal Arteries using Low Osmolar Contrast (ICD-10-PCS; 2018-04-11)
PROC: B2111ZZ Fluoroscopy of Multiple Coronary Arteries using Low Osmolar Contrast (ICD-10-PCS; principal; 2018-04-11 14:35)
PROC: B2151ZZ Fluoroscopy of Left Heart using Low Osmolar Contrast (ICD-10-PCS; 2018-04-11 14:35)
DX: I25.110 Atherosclerotic heart disease of native coronary artery with unstable angina pectoris (principal); I10 Essential (primary) hypertension; K21.9 Gastro-esophageal reflux disease without esophagitis; F41.9 Anxiety disorder, unspecified; I45.10 Unspecified right bundle-branch block; I16.0 Hypertensive urgency; E78.5 Hyperlipidemia, unspecified; Z87.891 Personal history of nicotine dependence

== ENCOUNTER → 2019-08-31 08:38 | Outpatient (CLI) | payer MEDICARE ==
[2018-04-11 14:07] VITALS: BMI 32.2
[~2019-08-31 08:38] MED LIST changes: +LEXAPRO10 MG PO; +LIPITOR10 MG PO; +NORVASC10 MG PO; +TOPROL XL25 MG PO; +ZESTRIL40 MG PO
== END | disposition home or self-care (01) ==
LOC: D.HCCECHO 08:30
PROVIDERS: ATTEND Internal Medicine Cardiovascular Disease
DX: I25.119 Atherosclerotic heart disease of native coronary artery with unspecified angina pectoris (principal)

== ENCOUNTER → 2019-09-08 13:09 | Outpatient (CLI) | payer MEDICARE ==
[2018-04-11 14:07] VITALS: BMI 32.2
== END | disposition home or self-care (01) ==
LOC: D.US 13:09
PROVIDERS: ATTEND Internal Medicine Interventional Cardiology
DX: R09.89 Other specified symptoms and signs involving the circulatory and respiratory systems (principal)

== ENCOUNTER 2019-09-14 06:18 | Outpatient (CLI) | payer MEDICARE ==
[~2019-09-14] VITALS: Ht 170.2 cm; Wt 94.4 kg
--- NOTE | ~2019-09-14 | HEMODYNAMI ---
PATIENT:SANDRA WHALEY MEDICAL RECORD: [id number] : 52 LOCATION:DSandraCAT ADMISSION DATE: 09/14/19 Generatedon:09/14/20199:27 Patient name: SANDRA WHALEY Patient #: [id number] SSN: [id number] : 1950 Date of study: 09/14/2019 Page: Of Hemodynamic Procedure Report Patient Data Patient Demographics Procedure consent was obtained First Name: SANDRA Gender: Male Last Name: JUDD : 1950 Middle Initial: R Age: 69 year(s) Patient #: [id number] Race: SSN: [id number] Additional ID: [id number] Contact details [address]: [address] [place] [address] State: [place] City: [place] Zip code: [address] Past Medical History Allergies: No known allergies Admission Admission Data Admission Date: 09/14/2019 Admission Time: 6:18 Arrival Date: 09/14/2019 Arrival Time: 0:00 Admit Source: Other Insurance Payor: Medicare [facility] #: [id number] Height (in.): 67 BSA: 2.06 (m2) Height (cm.): 170.18 BMI: 32.58 (kg/m2) Weight (lbs.): 208.03 Weight (kg.): 94.36 Lab Results Lab Result Date: 09/14/2019 Lab Result Time: 0:00 Biochemistry Name Units Result Min Max BUN mg/dl 20 --(----)*- 7 18 Creatinine mg/dl 1.2 --(---*)-- 0.6 1.3 eGFR ml/min 64.47941 *-(----)-- 90 120 NONAFRICAN CBC Name Units Result Min Max Hematocrit % 43.4 --(*---)-- 42 54 Hemoglobin g/dl 14.5 --(*---)-- 13.5 17.5 Procedure Procedure Types Cath Procedure Diagnostic Procedure [facility] w/Coronaries Sedation Charges Moderate Sedation up to 15 minutes Procedure Description Procedure Date Procedure Date: 09/14/2019 Procedure Start Time: 9:16 Procedure End Time: 9:26 Procedure Staff Name Function Evgeny Sánchez MD Performing Physician Aubrey Johnson RN Nurse Garima Lujan RT Heel Splitter Rhiannon Pandey RT Scrub Sylwia Jansen RT Monitor Indication Coronary risk factors Procedure Data Cath Procedure Fluoroscopy Diagnostic fluoroscopy Total fluoroscopy Time: 1 time: 1 min min Diagnostic fluoroscopy Total fluoroscopy dose: 498 dose: 498 mGy mGy Contrast Material Contrast Material Type Amount (ml) Isovue 370 69 Entry Location Entry Primary Successful Side Size Upsize Upsize Entry Closure Succes sful Closure Location (Fr) 1 (Fr) 2 (Fr) Remarks Device Remarks Femoral Right 5 Fr Exoseal artery Estimated blood loss: 5 ml Diagnostic catheters Device Type Used For End Catheter Placement MULTIPACK JL 4.0 5Fr Procedure catheter MULTIPACK 3DRC 5Fr Procedure catheter MULTIPACK Pigtail 5 Fr Procedure catheter Procedure Complications No complications Procedure Medications Medication Administration Route Dosage Oxygen etCO2 Nasal cannula 2 l/min Lidocaine 2% added to field 20 Heparin Flush Bag added to field 2 bags (1000units/500ml NS) 0.9% NaCl I.V. 100 ml/hr Versed I.V. 1 mg Fentanyl I.V. 50 mcg Versed I.V. 1 mg Fentanyl I.V. 50 mcg Hemodynamics Rest BSA: 2.06 (m2) HGB: 14.5 (g/dl) O2 Consumption: Estimated: 221.78 (ml/min) O2 Co nsumption indexed: Estimated:107.66 (ml/min/m) Heart Rate: 48 (bpm) Pressure Samples Time Site Value (mmHg) Purpose Heart Use Rate(bpm) 9:21 LV 84/-5,17 Snapshot 48 Gradients Valve Time Site Site Mean SEP/DFP Peak To Heart Use 1 2 (mmHg) (sec/min) Peak Rate (mmHg) (bpm) Aortic 9:22 LV AO 48 Snapshots Pre Cath Intra NCS Post Cath Vital Signs Time Heart Resp SPO2 etCO2 NIBP Rhythm Pain Sedation Rate (ipm) (%) (mmHg) (mmHg) Status Level (bpm) 9:05:11 71 14 97 41.1 107/66(73) NSR 0 (11) 10(A) , No pain 9:09:21 48 17 97 44.1 109/65(83) SB 0 (11) 10(A) , No pain 9:13:31 47 11 99 31.4 90/55(68) SB 0 (11) 10(A) , No pain 9:17:36 48 9 99 43.4 88/54(60) SB 0 (11) 9(A) , No pain 9:21:42 47 9 100 44.9 87/55(63) SB 0 (11) 9(A) , No pain 9:25:48 48 10 100 43.4 93/58(64) SB 0 (11) 9(A) , No pain Medications Time Medication Route Dose Verified Delivered Reason Notes Effe ctiveness by by 9:05:31 Oxygen etCO2 2 Evgeny Buffie used for Nasal l/min [facility] Johnson crystallography teacher cannula 9:05:38 Lidocaine 2% added 20ml Evgeny Evgeny for local to vial [facility] anesthetic field MD MTZ 9:05:46 Heparin Flush added 2 Evgeny Evgeny used for Bag to bags [facility] procedure (1000units/500ml field MD MTZ NS) 9:05:56 0.9% NaCl I.V. 100 Evgeny Buffie Per ml/hr [facility] Matthew Johnson RN physician 9:11:04 Versed I.V. 1 mg Evgeny Buffie for [facility] Matthew Johnson RN sedation 9:11:10 Fentanyl I.V. 50 [place]geny [place] [facility] [place] [facility] Johnson RN sedation 9:19:24 Versed I.V. 1 mg Evgeny Buffie for PrincessMatthew Johnson RN sedation 9:19:28 Fentanyl I.V. 50 Evgeny [place]ie [place] [facility] [place] Princess Johnson RN sedation Procedure Log Time Note 8:16:34 Informed consent obtained and on chart 8:17:10 Lab Result : BUN 20 mg/dl 8:17:10 Lab Result : Hematocrit 43.4 % 8:17:10 Lab Result : eGFR NONAFRICAN 64.25428 ml/min 8:17:10 Lab Result : Creatinine 1.2 mg/dl 8:17:10 Lab Result : Hemoglobin 14.5 g/dl 8:17:26 Diagnostic Cath Status : Elective 8:17:41 Arrival Date: 09/14/2019 12:00:00 AM 8:17:43 Patient Height : 67 inches 8:17:47 Patient Weight : 208.03 lbs 8:17:50 Admit Source: Other 8:18:01 Insurance Payor : Medicare 8:33:47 Patient allergic to No known allergies 8:35:21 Procedure Status Elective Heart Cath (OP). 8:35:26 Time tracking: Regular hours (M-F 7:00 - 5:00) 8:35:33 Plan of Care:Hemodynamics will remain stable., Cardiac rhythm will remain stable., Comfort level will be maintained., Respiratory function will remain adequate., Patient/ family verbilizes understanding of procedure., Procedure tolerated without complication., Recovers from procedure without complications.. 8:35:41 H&P Date Dictated: 08/25/2019 Within 30 days and on chart.. 8:35:44 Family unavailable. 8:35:46 Patient NPO since Midnight. 8:35:51 Lab results completed and on chart. 8:35:54 Stress Test: no; N/A ? 8:35:56 Alarms reviewed by R. N. 8:35:56 Sharps counted by scrub and verified by R.N. 8:38:30 Pre-procedure instructions explained to patient. 8:38:31 Pre-op teaching completed and patient verbalized understanding. 8:56:45 Garima Lujan RT(R) sent for patient. Start room use. 9:00:11 Patient received from Pre/Post Procedure Room to CCL 2 Alert and oriented. Tansferred to table in Supine position. 9:00:19 Warm blankets applied, and kishan hugger turned on for patient comfort. 9:00:20 Correct patient and procedure confirmed by team. 9:00:20 ECG and BP/O2 sat monitors applied to patient. 9:00:24 Is the patient allergic to Iodine/contrast media? No. 9:00:51 Indication : Coronary risk factors 9:01:00 Risk of Mortality: 0.1 9:01:02 Risk of blood transfusion: 0.2 9:01:11 Risk of QI: 0.4 9:04:05 Vital chart was started 9:04:06 Full Disclosure recording started 9:04:09 Is patient on blood thinner?Yes 9:04:11 ACC The patient was administered the following blood thiners within the last 24 hours: ACCPlavix 9:04:13 Patient diabetic? No. 9:04:18 Previous problem with sedation/anesthesia? No ? 9:04:19 Snore? Yes 9:04:20 Sleep apnea? Yes 9:04:20 Deviated septum? No 9:04:21 Opens mouth fully? Yes 9:04:23 Sticks out tongue? Yes 9:04:26 Airway obstruction? No ? 9:04:29 Dentures? No ? 9:04:31 Pre procedure: right dorsailis pedis pulse 1+ Palpable, but thready & weak; easily obliterated 9:04:45 Patient pain scale 0/10 ?. 9:04:53 IV patent on arrival in left antecubital with 0.9% NaCl at [facility]. 9:04:59 Right groin area was prepped with chlora-prep and draped in sterile fashion 9:05:02 Use device set Femoral Dx 9:05:03 ACIST Syringe (70912) opened to sterile field. 9:05:04 Bag Decanter (2002S) opened to sterile field. 9:05:05 ACIST Hand Control (05542) opened to sterile field. 9:05:05 ACIST Manifold (74102) opened to sterile field. 9:05:06 Tegaderm 4 x 4 (1626W) opened to sterile field. 9:05:08 Medline Cath Pack ([id number]) opened to sterile field. 9:05:09 DIAGNOSTIC Multipack 5Fr catheter set ([id number]) opened to sterile field. 9:05:12 SHEATH 5FR [place] (URT690) opened to sterile field. 9:05:13 EMERALD Guide Wire (443-237) opened to sterile field. 9:05:31 Oxygen 2 l/min etCO2 Nasal cannula was administered by Aubrey Johnson RN; used for procedure; Verbal order read back and verified. 9:05:38 Lidocaine 2% 20ml vial added to field was administered by Evgeny Sánchez MD; for local anesthetic; Verbal order read back and verified. 9:05:46 Heparin Flush Bag (1000units/500ml NS) 2 bags added to field was administered by Evgeny Sánchez MD; used for procedure; Verbal order read back and verified. 9:05:56 0.9% NaCl 100 ml/hr I.V. was administered by Aubrey Johnson RN; Per physician; Verbal order read back and verified. :: --------ALL STOP TIME OUT------ :: Final Timeout: patient, procedure, and site verified with staff and physician. All members of the team are in agreement. 9::33 Right groin site verified by team. 9:09:37 Fire Safety Assessment: A--An alcohol-based skin anteseptic being used preoperatively., C--Open oxygen or nitrous oxide is being used., D--An ESU, laser, or fiber-optic light is being used. 9::43 Physical assessment completed. ASA score P 2 - A patient with mild systemic disease as per Evgeny Sánchez MD. 9:09:45 2) 60-89 Mildly reduced kidney function, and other findings (as for stage 1) point to kidney disease. 9:09:48 Maximum allowable contrast dose (3.7 X eGFR X 0.75)178 ml. 9:09:52 Sedation plan: IV Moderate Sedation Medication:Versed, Fentanyl 9:11:04 Versed 1 mg I.V. was administered by Aubrey Johnson RN; for sedation; Verbal order read back and verified. 9:11:10 Fentanyl 50 mcg I.V. was administered by Aubrey Johnson RN; for sedation; Verbal order read back and verified. 9:16:28 Procedure started. 9:16:32 Local anesthetic to right femoral artery with Lidocaine 2% by Evgeny Sánchez MD.INITIAL ACCESS ONLY 9:17:22 A 5 Fr sheath was inserted into the Right Femoral artery 9:17:30 A MULTIPACK JL 4.0 5Fr catheter was advanced over the wire and used for Procedure. 9:18:22 LCA angiography performed. 9:18:24 Injector settings: Ml/sec: 3, Volume: 6, 9:19:24 Versed 1 mg I.V. was administered by Aubrey Johnson RN; for sedation; Verbal order read back and verified. ::28 Fentanyl 50 mcg I.V. was administered by Aubrey Johnson RN; for sedation; Verbal order read back and verified. 9::29 Catheter removed. 9:19:33 A MULTIPACK 3DRC 5Fr catheter was advanced over the wire and used for Procedure. 9:20:22 RCA angiography performed. 9:20:25 Injector settings: Ml/sec: 3, Volume: 6, 9:20:46 Catheter removed. 9:20:51 A MULTIPACK Pigtail 5 Fr catheter was advanced over the wire and used for Procedure. 9:21:37 Injector settings: Ml/sec: 5, Volume: 15, 9:21:39 LV gram done using PALMER 9:21:49 LV hemodynamics recorded. 9:22:07 EF : 55 % 9:22:12 Catheter removed. 9:22:19 EXOSEAL 5Fr (EX500) opened to sterile field. 9:22:33 Sheath removed intact; hemostasis achieved with Exoseal to the Right Femoral artery. 9:23:00 Fluoroscopy time 01.00 minutes. 9:23:05 Fluoroscopy dose: 498 mGy 9:23:05 Flurop Dose total: 498 9:23:11 Dose Area Product 68832. mGy/cm. 9:23:13 Procedure ended.(Physican Out) 9:23:32 Contrast amount:Isovue 370 69ml. 9:23:35 Maximum allowable dose exceeded? No. 9:23:36 Sharps counted by scrub and verified by R.N. 9:24:07 Post-op/insertion site Right Femoral artery dressed using a 4 x 4 and Tegaderm. 9:24:12 Post right femoral artery:stable, soft, clean and dry 9:24:14 Post Procedure Pulses reassessed and unchanged 9:24:17 Post procedure: right dorsailis pedis pulse 2+ Normal; easily identifiable; not easily obliterated. 9:24:22 Post-procedure physical assessment completed. ASA score P 2 - A patient with mild systemic disease as per Evgeny Sánchez MD. 9:24:24 Post procedure rhythm: unchanged. 9:24:27 Estimated blood loss: 5 ml 9:24:30 Post procedure instruction explained to patient.Patient verbalizes understanding. 9:24:30 Patient needs reinforcement of post procedure teaching. 9:24:37 Procedure type changed to Cath procedure, Diagnostic procedure, LHC, LHC w/Coronaries, Sedation Charges, Moderate Sedation up to 15 minutes 9:25:01 Procedure and supply charges have been captured, reviewed, submitted and are correct. 9:25:06 Procedure Complication : No complications 9:25:09 Vital chart was stopped 9:25:13 Operative report dictated upon procedure completion. 9:25:14 See physician's report for complete and final results. 9:25:18 [facility] Findings: mild to moderate CAD (<70%) 9:25:23 Report given to Pre/Post Procedure Room. 9:26:23 Patient transfered to Pre/Post Procedure Room with Stretcher. 9:26:27 Procedure ended. 9:26:27 Full Disclosure recording stopped 9:26:34 End room use (Document Last) 9:26:43 End room use (Document Last) 9:27:08 End room use (Document Last) Device Usage Item Name Manufacture Quantity Catalog Hospital Part Current Minimal L ot# / Number Charge Number Stock Stock Serial# Code ACIST Acist 1 03549 692460 364888 785239 20 Syringe Medical (62998) Systems Inc Bag Microtek 1 225255 76197 158027 5 Decanter Medical Inc. () ACIST Hand Acist 1 45298 572552 988191 075291 5 Control Medical (47643) Systems Inc ACIST Acist 1 29082 373721 056362 246353 5 Manifold Medical (48396) Systems Inc Tegaderm 4 3M 1 1626W 956393 315618 780334 5 x 4 (1626W) Medline Medline 1 [id number] 100326 36371 971690 5 Cath Pack ([id number]) DIAGNOSTIC Cardinal 1 DB3408 028373 86736 463563 30 Multipack Health 5Fr catheter set (DA2982) SHEATH 5FR Terumo 1 BLV546 911202 545427 269411 5 [place] (COH486) EMERALD Cardinal 1 502-455 284142 600510 933935 5 Guide Wire Health (502-455) MULTIPACK Cardinal 1 720190 5 JL 4.0 5Fr Health catheter MULTIPACK Cardinal 1 854043 5 3DRC 5Fr Health catheter MULTIPACK Cardinal 1 181013 5 Pigtail 5 Health Fr catheter EXOSEAL 5Fr Cardinal 1 EX500 411230 765403 779928 10 (EX500) Health Signature Audit Greig Stage Time Signature Unsigned Intra-Procedure 09/14/2019 Sylwia Jansen 9:26:43 AM RT(R) Intra-Procedure 09/14/2019 Aubrey Johnson RN 9:27:08 AM Intra-Procedure 09/14/2019 Evgeny Loaiza 9:27:26 AM Matthew MD Signatures Performing Physician : Signature : Evgeny Sánchez MD Date : Time : Nurse : Buffie Johnson RN Signature : Date : Time : Monitor : Sylwia Young Signature : RT Date : Time : [facility] [address] [place] [address]
[2019-09-14] MEDS ORDERED: CELEXA40 MG PO (06:51)
[2019-09-14] MEDS ORDERED: HYDROCHLOROTHIA25 MG PO (06:51)
[2019-09-14] MEDS ORDERED: TOPROL XL25 MG PO (06:52)
[2019-09-14 07:06] VITALS: BP 107/70; Ht 170.2 cm; Wt 94.4 kg
[2019-09-14 07:12] LABS: BASOPHILS 0.8 % (0-2); EOSINOPHILS 5.9 % (0-7); HEMATOCRIT 43.4 % (42.0-54.0); HEMOGLOBIN 14.5 g/dL (13.5-17.5); IMMATURE GRANULOCYTES 0.5 % (0-5); LYMPHOCYTES 33.7 % (15-50); MCH 29.7 pg (26.0-34.0); MCHC 33.4 g/dL (31.0-37.0); MCV 88.8 fL (80.0-100.0); MEAN PLATELET VOLUME 10.1 fL (7.4-10.4); MONOCYTES 8.8 % (2-11); NEUTROPHILS 50.3 % (40-80); PLATELET COUNT 332 10x3/uL (130-400); RBC 4.89 10x6/uL (4.20-6.10); RDW 13.2 % (11.5-14.5); WBC 8.5 10x3/uL (4.8-10.8)
[2019-09-14 07:25] LABS: ANION GAP 12.7 mmol/L (8-16); CALCIUM 9.4 mg/dL (8.5-10.1); CARBON DIOXIDE 26.9 mmol/L (21.0-32.0); CREATININE - SERUM 1.2 mg/dL (0.6-1.3); LDL-HDL RATIO 1.7 ratio (1.5-3.5); POTASSIUM - SERUM 3.6 mmol/L (3.5-5.1)
--- NOTE | 2019-09-14 09:44 | NUR ---
PT ARRIVED BY STRETCHER TO ROOM. PLACED ON MONITORS. ASSESSMENT COMPLETED. VSS AT THIS TIME. CALL LIGHT WITHIN REACH. FAMILY AT BEDSIDE.
--- NOTE | 2019-09-14 10:01 | NUR ---
RIGHT GROIN DRESSING C/D/I. NO S/S OF HEMATOMA NOTED. CALL LIGHT WITHIN REACH. VSS AT THIS TIME. NO NEEDS.
--- NOTE | 2019-09-14 10:07 | NUR ---
HR 38 SB. BP 88/42 (MAP 62). PT'S ALERT AND ORIENTED. DENIES ANY NAUSEA OR DIZZINESS AT THIS TIME. DR. SYKES AWARE. ORDERS RECEIVED TO HAVE PT HOLD METOPROLOL UNTIL HE IS SEEN IN THE OFFICE IN 4 WEEKS.
--- NOTE | 2019-09-14 10:39 | NUR ---
HEAD OF BED INC TO 30 DEGREES. TOLERATED WELL. RIGHT GROIN DRESSING C/D/I. NO S/S OF HEMATOMA. PT SET UP WITH SANDWICH TRAY AND DRINK. DENIES NAUSEA/PAIN. FAMILY AT BEDSIDE. DR. SYKES ROUNDED AND SPOKE WITH PT AND PT'S FAMILY.
--- NOTE | 2019-09-14 11:16 | NUR ---
RIGHT GROIN DRESSING C/D/I. NO S/S OF HEMATOMA NOTED. CALL LIGHT WITHIN REACH. VSS. PIV D/C'D WITH CATH TIP INTACT. TOLERATED WELL. PT INSTRUCTED TO GET UP AND DRESSED AT THIS TIME. FAMILY AT BEDSIDE TO ASSIST.
--- NOTE | 2019-09-14 11:25 | NUR ---
PT AMBULATED TO RESTROOM. VOIDED WITHOUT DIFFICULTY. STEADY GAIT NOTED.
--- NOTE | 2019-09-14 11:30 | NUR ---
DISCUSSED DISCHARGE INSTRUCTIONS WITH PT AND PT'S SIGNIFICANT OTHER. THEY VOICED UNDERSTANDING. RIGHT GROIN DRESSING C/D/I. NO S/S OF HEMATOMA NOTED. PT TAKEN DOWN TO VEHICLE BY WHEELCHAIR. NO S/S OF DISTRESS NOTED. ALL BELONGINGS AND PAPERWORK IN HAND.
--- NOTE | 2019-09-15 15:43 | OP ---
PATIENT NAME: SANDRA WHALEY MEDICAL RECORD: [id number] :52 LOCATION:D.CAT ADMISSION DATE: SURGEON: RUSTAM SYKES MD DATE OF OPERATION: 09/14/2019 PROCEDURE: Left heart catheterization, selective coronary angiography, right femoral artery approach. CATHETERS: A 5-Mexican sheath, 5/4 left and right Ruba, 5/4 pig. The procedure was well tolerated. The patient returned to [place]. Sheath removed. ExoSeal device placed. FINDINGS: Left ventriculography in 30-degree PALMER view: Normal wall motion and normal systolic function. CORONARY ANATOMY: LEFT MAIN: Left main is free of disease. LAD: Area of previous stenting is widely patent. No progression of tribal disease. No evidence of restenosis. 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 Area of previous stenting is widely patent. No evidence of restenosis. No progression of tribal disease. RIGHT CORONARY ARTERY: A moderate size right, free of disease. IMPRESSION: No evidence of restenosis, no progression of tribal disease. TRANSINT:[id number] Voice Confirmation ID: [id number] DOCUMENT ID: [id number] RUSTAM SYKES MD at 1543 CC: [id number] DICTATION DATE: 09/14/19929 CIVIL ENGINEER IN TRAINING: 09/14/192058 [facility] CLI 09/14/19 [id number] [place] [address]
== END 2019-09-14 11:30 | disposition home or self-care (01) ==
LOC: D.CATH 06:18
PROVIDERS: ATTEND Internal Medicine Interventional Cardiology
DX: R94.30 Abnormal result of cardiovascular function study, unspecified (principal); I25.119 Atherosclerotic heart disease of native coronary artery with unspecified angina pectoris; E78.5 Hyperlipidemia, unspecified; R09.89 Other specified symptoms and signs involving the circulatory and respiratory systems; R01.1 Cardiac murmur, unspecified